=== PATIENT | male | born 1955 | race Caucasian/White ===

== ENCOUNTER 2016-11-07 18:28 | Emergency (ER) | payer BC ==
[~2016-11-07 18:28] MED LIST: BACTRIM DS TABL1 TA1 PO; DARVOCET-N 1001 TAB PO; FLEXERIL PO; KEFLEX250 M2 PO; KEFLEX500 M1 PO; LORTAB 5/500 TA1 TA1 PO; ORUDIS75 M1 PO; TYLOX 5/500 CAP1 CAP PO; VICODIN 5/1 TAB 5/50 PO
== END 2016-11-07 20:19 | disposition home or self-care (01) ==
LOC: CFTX 18:28 → CED 18:28 → CFTX 19:21
DX: S01.111A Laceration without foreign body of right eyelid and periocular area, initial encounter (principal); I71.4 Abdominal aortic aneurysm, without rupture; Z91.041 Radiographic dye allergy status; F17.210 Nicotine dependence, cigarettes, uncomplicated; Y04.0XXA Assault by unarmed brawl or fight, initial encounter; Y92.009 Unspecified place in unspecified non-institutional (private) residence as the place of occurrence of the external cause
CPT/HCPCS: 12011; 99283